=== PATIENT | female | born 1990 | race African-American/Black ===

== ENCOUNTER 2016-10-15 20:58 | Emergency (ER) | payer MEDICAID ==
[2016-03-31 05:45] VITALS: BMI 24.5
[~2016-10-15 20:58] MED LIST: IBUPROFEN600 MG PO; PERCOCET 5-3251 TAB PO
== END 2016-10-15 23:00 | disposition left against medical advice (07) ==
LOC: D.ER 20:58
DX: M79.602 Pain in left arm (principal)

== ENCOUNTER 2016-11-29 13:20 | Emergency (ER) | payer SELFPAY ==
[2016-03-31 05:45] VITALS: BMI 24.5
[2016-11-29 14:19] LABS: BASOPHILS 0.2 % (0-2); EOSINOPHILS 2.8 % (0-7); HEMATOCRIT 35.8 % (36.0-48.0); HEMOGLOBIN 11.7 g/dL (12-16); LYMPHOCYTES 44.9 % (15-50); MCH 24.4 pg (26.0-34.0); MCHC 32.7 g/dL (31.0-37.0); MCV 74.6 fL (80.0-100.0); MONOCYTES 4.3 % (2-11); NEUTROPHILS 47.8 % (40-80); PLATELET COUNT 257 10x3/uL (130-400); RDW 14.1 % (11.5-14.5); WBC 5.6 10x3/uL (4.8-10.8)
[2016-11-29 14:35] LABS: HCG SERUM POSITIVE (NEGATIVE)
[2016-11-29 16:37] LABS: APPEARANCE CLEAR (CLEAR); BILIRUBIN NEGATIVE (NEGATIVE); COLOR YELLOW (YELLOW); GLUCOSE NEGATIVE (NEGATIVE); KETONE NEGATIVE (NEGATIVE); LEUKOCYTE ESTERASE NEGATIVE (NEGATIVE); NITRITE NEGATIVE (NEGATIVE); PROTEIN NEGATIVE (NEGATIVE); SPECIFIC GRAVITY 1.015 (1.005-1.020); UROBILINOGEN NORMAL (NORMAL)
[2016-11-29 16:42] LABS: BACTERIA FEW /hpf (NONE SEEN); EPITHELIAL CELLS OCC /hpf (0-5); RED CELLS - URINE 0-5 /hpf (0-5); WHITE CELLS - URINE OCC /hpf (0-5)
== END 2016-11-29 18:15 | disposition home or self-care (01) ==
LOC: D.ER 13:20
PROVIDERS: Emergency Medicine; Nurse Practitioner Family
DX: O26.851 Spotting complicating pregnancy, first trimester (principal); Z3A.08 8 weeks gestation of pregnancy

== ENCOUNTER 2016-11-30 12:20 | Emergency (ER) | payer SELFPAY ==
[2016-03-31 05:45] VITALS: BMI 24.5
[2016-11-30 13:16] LABS: BASOPHILS 0.3 % (0-2); EOSINOPHILS 1.9 % (0-7); HEMATOCRIT 39.2 % (36.0-48.0); HEMOGLOBIN 12.9 g/dL (12-16); IMMATURE GRANULOCYTES 0.3 % (0-5); LYMPHOCYTES 28.2 % (15-50); MCH 24.7 pg (26.0-34.0); MCHC 32.9 g/dL (31.0-37.0); MCV 75.1 fL (80.0-100.0); MEAN PLATELET VOLUME 8.9 fL (7.4-10.4); MONOCYTES 4.8 % (2-11); NEUTROPHILS 64.5 % (40-80); PLATELET COUNT 260 10x3/uL (130-400); RBC 5.22 10x6/uL (4.00-5.40); RDW 14.1 % (11.5-14.5)
[2016-11-30 13:17] LABS: WBC 7.3 10x3/uL (4.8-10.8)
== END 2016-11-30 14:47 | disposition home or self-care (01) ==
LOC: D.ER 12:20
PROVIDERS: Emergency Medicine
DX: O03.9 Complete or unspecified spontaneous abortion without complication (principal)